=== PATIENT | female | born 2000 | race Two or more races ===

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

== ENCOUNTER 2023-01-27 11:19 | Emergency (ER) | payer SELFPAY ==
[~2023-01-27] VITALS: Ht 167.6 cm; Wt 65.0 kg
[2023-01-27] MEDS ORDERED: DICYCLOMINE HCL (10MG/ML) 2 ML AMPULE IM ONE (11:30)
[2023-01-27] MEDS ORDERED: ONDANSETRON HCL 4 MG/2 ML VIAL IV ONE (11:30)
[2023-01-27] MEDS ORDERED: SODIUM CHLORIDE 0.9% 1,000 ML IV ONE (11:30)
[2023-01-27 12:15] LABS: Basophils # (auto) 0 10 ^3/uL (0-0.2); Basophils % (auto) 0.2 % (0.0-2.0); Eosinophils # (auto) 0 10 ^3/uL (0-0.8); Eosinophils % (auto) 0.1 % (0.0-7.0); Hematocrit 46.2 % (36.0-46.0); Hemoglobin 15.5 g/dL (12.2-16.2); Lymphocytes # (auto) 0.9 10 ^3/uL (0.4-5.4); Lymphocytes % (auto) 6.4 % (10.0-50.0); Mean Corpuscular Hemoglobin 30.9 pg (28.0-32.0); Mean Corpuscular Hgb Conc. 33.7 g/dL (32.0-36.0); Mean Corpuscular Volume 91.7 fL (80.0-100.0); Monocytes # (auto) 0.5 10 ^3/uL (0-1.3); Monocytes % (auto) 3.7 % (0.0-12.0); Neutrophils # (auto) 12.9 10 ^3/uL (1.6-8.6); Neutrophils % (auto) 89.6 % (37.0-80.0); Nucleated Red Blood Cells % 0.2 %; Red Blood Cells 5.04 10^6/uL (4.0-5.20); Red Cell Distribution Width 13.3 % (11.8-14.3); White Blood Cell 14.4 10^3/uL (4.4-10.8)
[2023-01-27 12:27] LABS: Acetaminophen < 2.0 UG/ML (10.0-20.0)
[2023-01-27 12:28] LABS: Alanine Aminotransferase 51 U/L (7-40); Albumin 4.7 g/dL (3.2-4.8); Alkaline Phosphatase 82 U/L (46-116); Anion Gap 15 (5-15); Aspartate Aminotransferase 49 U/L (13-40); BUN/Creatinine Ratio 6.5 (10.0-20.0); Bilirubin, Direct 0.4 mg/dL (<0.3); Bilirubin, Total 0.9 mg/dL (0.2-1.0); Blood Alcohol < 3.0 mg/dL (<10); Blood Urea Nitrogen 5 mg/dL (9-23); Calcium 10.2 mg/dL (8.5-10.1); Carbon Dioxide 21 mmol/L (20-30); Chloride 106 mmol/L (98-107); Glucose 124 mg/dL (74-106); Potassium 3.7 mmol/L (3.5-5.1); Sodium 142 mmol/L (136-145); Total Protein 7.5 g/dL (5.7-8.2)
[2023-01-27 12:33] LABS: Salicylate < 3.0 mg/dL (2.8-20.0)
[2023-01-27 12:34] LABS: Lipase 31 U/L (12-53); Magnesium 1.7 mg/dL (1.6-2.6)
[2023-01-27 12:45] VITALS: BP 128/94; PULSE 96; RESP 16; O2SAT 98
[2023-01-27] MEDS ORDERED: LORazepam 2MG/ML-1ML VIAL IV ONE (13:45)
[2023-01-27] MEDS ORDERED: NAPR-1334 PO (13:46)
[2023-01-27] MEDS ORDERED: ZOFR4T PO (13:46)
[2023-01-27 14:19] LABS: Amphetamine Screen, Urine Neg (NEGATIVE); Benzodiazephine Screen, Urine Neg (NEGATIVE); Cannabinoid Screen, Urine Pos (NEGATIVE); Cocaine Screen, Urine Neg (NEGATIVE); Opiate Scree,Urine Neg (NEGATIVE); Phencyclidine Screen, Urine Neg (NEGATIVE)
[2023-01-27 14:31] LABS: Barbiturate Scree,Urine Neg (NEGATIVE)
== END 2023-01-27 15:07 | disposition home or self-care (01) ==
LOC: EDBD 11:19 → ER 11:19
DX: F12.90 Cannabis use, unspecified, uncomplicated (principal); R10.2 Pelvic and perineal pain; R10.84 Generalized abdominal pain; R11.2 Nausea with vomiting, unspecified; F15.90 Other stimulant use, unspecified, uncomplicated; Z98.890 Other specified postprocedural states; Z79.899 Other long term (current) drug therapy
CPT/HCPCS: 36415; 74176; 76705; 80053; 80307; 80320; 80329; 82248; 83690; 83735; 84702; 85025; 96361; 96372; 96374; 99285; J0500; J2405; J7030